=== PATIENT | female | born 1990 | race Caucasian/White ===

== ENCOUNTER 2018-08-16 23:04 | Emergency (ER) | payer MEDICAID ==
[2018-08-16] MEDS ORDERED: ACETAMINOPHEN 500 MG TAB ONE (23:27)
[2018-08-16] MEDS ORDERED: IBUPROFEN 600 MG TAB PO ONE ×2 (23:27→23:29)
[2018-08-16] MEDS ORDERED: ACETAMINOPHEN 500 MG TAB PO ONE (23:29)
--- NOTE | 2018-08-16 23:38 | EDPHY ---
H & P Stated Complaint: fall down stairs Time Seen by Provider: 08/16/18 23:15 HPI/ROS: HPI: The patient presents with a fall down stairs which began just prior to arrival. She was walking down the stairs and was wearing socks she slipped and fell down about 6 stairs. She hit her head on this stair and also hit her left hip. She has been able to walk. The pain in her head begins at the back of her head the radiates throughout and is achy in nature. She does not have any neck pain, vision changes, vomiting. REVIEW OF SYSTEMS 10 systems were reviewed and negative with the exception of the elements mentioned in the history of present illness. PMHx: History of IBS, history of opiate dependence, has a care plan in place TRAUMA PHYSICAL General Appearance: Alert, no distress Head: 2 cm posterior occipital hematoma present Eyes: Pupils equal, round, reactive ENT, Mouth: No hemotypanium, no oral trauma Neck: Non- tender, trachea midline Respiratory: No chest wall tenderness, no subcutaneous air, lungs clear bilaterally Cardiovascular: Regular rate and rhythm Abdomen: Abdomen is soft and non-tender, pelvis stable Skin: No lacerations, No abrasion Back: No midline T/L/S pain Extremities: Right iliac crest is tender to palpation with full range of motion of the hip Neurological: A&Ox3, GCS=15,normal motor function with 5/5 strength in all 4 extremities, normal sensory exam Source: Patient Exam Limitations: No limitations - Personal History LMP (Females 10-55): Unknown Current Tetanus Diphtheria and Acellular Pertussis (TDAP): Yes - Medical/Surgical History Hx Asthma: No Hx Chronic Respiratory Disease: No Hx Diabetes: No Hx Cardiac Disease: No Hx Renal Disease: No Hx Cirrhosis: No Hx Alcoholism: No Hx HIV/AIDS: No Hx Splenectomy or Spleen Trauma: No Other PMH: r knee, opiate dependence, irritable bowel syndrome, chronic abdominal pain, right hydronephrosis, depression - Social History Smoking Status: Former smoker Constitutional: Initial Vital Signs Heart Rate 78 08/17/18 01:03 Respiratory Rate 16 08/17/18 01:03 Blood Pressure 127/62 H 08/17/18 01:03 O2 Sat (%) 97 08/17/18 01:03 O2 Delivery Mode Room Air Allergies/Adverse Reactions: lactose Allergy (Uncoded 11/13/13 12:13) Home Medications: Medication Instructions Recorded NK [No Known Home Meds] 11/13/13 Medical Decision Making - Diagnostics Imaging Results: CT scan of head without IV contrast is unremarkable, interpreted by direct Radiology. Differential Diagnosis: 28-year-old female with history of opiate dependence presents with fall down stairs, now with headache, occipital hematoma, right hip pain. Plan for x-rays, ibuprofen and Tylenol. I will perform CT scan of her head in this case given that she has an occipital hematoma which measures about 2 cm and a diffuse headache. The patient refused x-rays of her hip. She felt that she did not need them. I feel this is reasonable given that she is able to bear weight. She underwent CT scan of her head which was unremarkable. Her pain continued despite ibuprofen and Tylenol. I gave her a dose of Flexeril with some improvement of her symptoms. She feels comfortable going home. I gave her instructions for head injury. Differential diagnoses considered include concussion, intracranial hemorrhage, hip strain, hip fracture. - Data Points Medications Given: Discontinued Medications Acetaminophen (Tylenol) 1,000 mg PO EDNOW ONE Stop: 08/16/18 23:30 Last Admin: 08/16/18 23:29 Dose: 1,000 mg Cyclobenzaprine HCl (Flexeril) 10 mg PO EDNOW ONE Stop: 08/17/18 00:35 Last Admin: 08/17/18 00:35 Dose: 10 mg Ibuprofen (Motrin) 600 mg PO EDNOW ONE Stop: 08/16/18 23:30 Last Admin: 08/16/18 23:29 Dose: 600 mg Departure - Departure Disposition: Home, Routine, Self-Care Clinical Impression: Fall down stairs Qualifiers: Encounter type: initial encounter Qualified Code(s): W10.8XXA - Fall (on) (from ) other stairs and steps, initial encounter Traumatic hematoma of occiput Qualifiers: Encounter type: initial encounter Qualified Code(s): S00.83XA - Contusion of other part of head, initial encounter Condition: Good Instructions: Head Injury (ED), R.I.C.E. Treatment (ED) Additional Instructions: Please take ibuprofen 400 mg with acetaminophen 1 g every 6 hr as needed for pain. Return to the emergency department if your worse in any way. Referrals: Mary Ellen Bull [Primary Care Provider] - As per Instructions
[2018-08-17] MEDS ORDERED: CYCLOBENZAPRINE 10 MG TAB ONE (00:33)
[2018-08-17] MEDS ORDERED: CYCLOBENZAPRINE 10 MG TAB PO ONE (00:34)
[2018-08-17 01:04] VITALS: BP 127/62
== END 2018-08-17 01:04 | disposition home or self-care (01) ==
DX: S00.83XA Contusion of other part of head, initial encounter (principal); M25.552 Pain in left hip; W10.9XXA Fall (on) (from) unspecified stairs and steps, initial encounter